=== PATIENT | male | born 1980 | race Two or more races ===

== ENCOUNTER 2024-07-25 04:49 | Emergency (ER) | payer MEDICAID, SELFPAY ==
[2024-07-25 05:05] VITALS: BP 137/84; PULSE 86; RESP 18; TEMP 38.1; O2SAT 96
--- NOTE | 2024-07-25 05:19 | XR_ITS ---
The examination: PA lateral chest 2 views Technique: Upright PA lateral chest 2 views Exam date and time: July 25, 2024 1725 hrs. Indications: Shortness of breath today. Findings: Mild prominence of ventricle No pneumonia or pulmonary edema 4 mm pulmonary nodule left upper lobe Impression: No pneumonia or pulmonary edema Recommend 3 month follow-up PA lateral chest to document stability of small pulmonary nodule left upper lobe
--- NOTE | 2024-07-25 05:19 | PD.EDRME ---
Rapid Medical Screening Exam RME Arrival date/time: 07/25/24 04:49 44 year old male present to Ed for c/o of flu like sx. I have greeted and performed a focused initial assessment of this patient. A comprehensive ED assessment and evaluation of the patient, analysis of all test results, and completion of the medical decision making process will be conducted by additional ED providers. Chief Complaint: Flu Like Symptoms Vital signs: Vital Signs Temperature 100.6 F H 07/25/24 05:05 Pulse Rate 86 07/25/24 05:05 Respiratory Rate 18 07/25/24 05:05 Blood Pressure 137/84 H 07/25/24 05:05 Pulse Oximetry (%) 96 07/25/24 05:05 Oxygen Delivery Method Room Air 07/25/24 05:05
[2024-07-25 06:00] VITALS: TEMP 38.1
[2024-07-25] MEDS: ACETAMINOPHEN 500 MG TABLET 1000 MG PO (06:00)
[2024-07-25] MEDS: BENZONATATE 100 MG CAPSULE 200 MG PO (06:00)
--- NOTE | 2024-07-25 06:25 | PD.EDURI ---
Upper Respiratory Inf. RME/HPI General Chief Complaint: Flu Like Symptoms Stated Complaint: SHORTNESS OF BREATH, COUGH, FEVER, HEADACHE Time Seen by Provider: 07/25/24 06:04 Source: patient Arrival date/time: 07/25/24 04:49 44-year-old male with no known medical history presents to the emergency room with a chief complaint of coughing, shortness of breath, intermittent fevers, headaches x 2 days Mode of arrival: ambulatory Limitations: no limitations RME / HPI RME / HPI Narrative: 07/25/24 04:49 44 year old male present to Ed for c/o of flu like sx. I have greeted and performed a focused initial assessment of this patient. A comprehensive ED assessment and evaluation of the patient, analysis of all test results, and completion of the medical decision making process will be conducted by additional ED providers. Related Data Previous Rx's ?Medication ?Instructions ?Recorded acetaminophen 325 mg capsule 650 mg (2 x 325 mg) PO QID PRN 07/25/24 fever or pain 7 days #30 caps Allergies Allergy/AdvReac Type Severity Reaction Status Date / Time No Known Allergies Allergy Verified 08/02/23 12:07 Review of Systems Review of Systems Systems Reviewed: All systems reviewed, normal except as documented Constitutional Constitutional: Reports system reviewed and no additional complaints, except as documented, Denies fatigue, Reports fever(s), Reports headache(s) and Reports weakness Eyes Eyes: Reports system reviewed and no additional complaints, except as documented, Denies blurry vision and Denies change in vision ENT Ears, Nose, Mouth, and Throat: Reports system reviewed and no additional complaints, except as documented, Denies otalgia, Reports headache(s), Denies nasal congestion, Denies throat swelling and Denies vertigo Cardiovascular Cardiovascular: Reports system reviewed and no additional complaints, except as documented, Denies chest pain, Reports dyspnea and Denies dyspnea on exertion Respiratory Respiratory: Reports system reviewed and no additional complaints, except as documented, Denies chest congestion, Reports cough, Reports dyspnea, Denies dyspnea on exertion and Denies wheezing Gastrointestinal Gastrointestinal: Reports system reviewed and no additional complaints, except as documented, Denies abdominal pain, Denies cramping, Denies nausea and Denies vomiting Genitourinary Genitourinary: Reports system reviewed and no additional complaints, except as documented, Denies dysuria and Denies hematuria Musculoskeletal Musculoskeletal: Reports system reviewed and no additional complaints, except as documented and Denies back pain Integumentary/Breasts Skin/Breast: Reports system reviewed and no additional complaints, except as documented and Denies wounds Neurologic Neurologic: Reports system reviewed and no additional complaints, except as documented, Denies confusion, Reports headache(s), Denies lack of coordination, Denies vertigo and Reports weakness Psychiatric Psychiatric: Reports system reviewed and no additional complaints, except as documented, Denies anxiety, Denies confusion, Denies depression, Denies paranoia, Denies suicidal ideation and Denies tactile hallucinations Endocrine Endocrine: Reports system reviewed and no additional complaints, except as documented and Denies fatigue Hematologic/Lymphatic Hematologic/Lymphatic: Reports system reviewed and no additional complaints, except as documented and Denies lymphadenopathy Allergic/Immunologic Allergic/Immunologic: Reports system reviewed and no additional complaints, except as documented, Denies throat swelling, Denies urticaria and Denies wheezing Past Medical History Social History SMOKING STATUS: Never smoker ED Exam General Limitations: Present no limitations General appearance: Present alert and in no apparent distress Head Head exam: Present atraumatic, normocephalic and normal inspection Eye Eye exam: Present normal appearance, PERRL and EOMI ENT ENT exam: Present normal exam, normal oropharynx and mucous membranes moist Neck Neck exam: Present normal inspection, full ROM and trachea midline Chest Chest inspection: Present normal inspection and symmetric chest wall rise Respiratory Respiratory exam: Present normal lung sounds bilaterally; Absent respiratory distress, wheezes, stridor, accessory muscle use or prolonged expiratory phase Cardiovascular Cardiovascular exam: Present regular rate, normal rhythm and normal heart sounds Abdominal Exam Abdominal exam: Present soft and normal bowel sounds Extremities Exam Extremities exam: Present normal inspection and full ROM Back Exam Back exam: Present normal inspection and full ROM Neurological Exam Neurological exam: Present alert, oriented X3 and CN II-XII intact Psychiatric Psychiatric exam: Present normal affect and normal mood Skin Skin exam: Present warm, dry, intact and normal color Course Quality Measures none Orders Category Date Time Status Bedside COVID-19 Antigen Test NOW Care 07/25/24 05:18 Completed Bedside Influenza A&B Antigen Test NOW Care 07/25/24 05:18 Completed XR chest 2V Stat Exams 07/25/24 05:19 Taken Strep A Rapid Stat Lab 07/25/24 05:39 Received Acetaminophen Tab [Tylenol ES Tab] Med 07/25/24 05:18 Discontinued 1,000 mg PO X1 ONE Benzonatate [Tessalon] Med 07/25/24 05:18 Discontinued 200 mg PO X1 ONE Vital Signs Vital signs: Vital Signs Temperature 100.6 F H 07/25/24 05:05 Pulse Rate 86 07/25/24 05:05 Respiratory Rate 18 07/25/24 05:05 Blood Pressure 137/84 H 07/25/24 05:05 Pulse Oximetry (%) 96 07/25/24 05:05 Oxygen Delivery Method Room Air 07/25/24 05:05 O2 saturation 96% on room air Upper Respiratory Infection MDM Narrative MDM Narrative:: 44-year-old male with no known medical history presents to the emergency room with a chief complaint of coughing, shortness of breath, intermittent fevers, headaches x 2 days Patient is hemodynamically stable. Patient was febrile and temperature dropped after antipyretics. The patient is not tachypneic he is not tachycardic and O2 saturation is 96% on room air Lung sounds are clear bilaterally. There is no evidence of wheezing or any abnormal breath sounds Patient tested positive for influenza A Patient was discharged and educated to follow-up with primary care provider in the next 24 to 48 hours and return to the emergency room for any evidence of worsening signs or symptoms Patient data External records reviewed:: [facility] previous records Clinical information provided by:: patient Social determinants that could affect healthcare access:: none Patient has the following chronic illnesses:: No chronic illness How is presenting disease/condition affected by chronic disease/condition?: no chronic disease Evaluation data The following diagnostics were reviewed and interpreted by me:: lab results and radiology exam(s) Lab and/or radiology exams considered but not ordered:: Labs and radiology exams considered and ordered Interpretation Summary: N/A Medications / Prescriptions Medications or Prescriptions considered but not ordered:: Medication given Medication administrations:: Medication Administration History Discontinued Medications Acetaminophen (Acetaminophen 500 Mg Tablet) 1,000 mg PO X1 ONE Stop: 07/25/24 05:19 Last Admin: 07/25/24 06:00 Dose: 1,000 mg Documented By: INES Benzonatate (Benzonatate 100 Mg Capsule) 200 mg PO X1 ONE; Protocol Stop: 07/25/24 05:19 Last Admin: 07/25/24 06:00 Dose: 200 mg Documented By: INES Medication given Consultations Consultation(s) initiated? (list below): No Diagnosis Upper Respiratory Differential Diagnosis: upper respiratory infection, viral infection, bronchitis and influenza Most likely diagnosis given after review of the tests above:: Influenza A Admission Indicated Admission indicated?: not indicated Admission Request Was there a request for admission?: No Disposition Plan Disposition Plan: Discharge Discharge Attestation Discharge Attestation: The patient and all family members were given an opportunity to ask questions and understood the discharge instructions. Discharge instructions specifically effects, indications for sooner follow up or return to the emergency department, and the expected course of current diagnosis. Patient condition: Stable Discharge Plan Plan Patient Disposition: HOME (Self Care) Disposition Comment: Stable Prescriptions/Referrals Prescriptions/Med Rec: New acetaminophen 325 mg capsule 650 mg PO QID PRN (Reason: fever or pain) 7 Days Qty: 30 0RF Referrals: Alberto Alfonso MD [Primary Care Provider] - In 1 week Problem List Clinical Impression: Influenza A Patient/Caregiver Discharge Instructions Education Materials: The Flu (Influenza), ED Influenza (Adult) Additional Instructions: Por favor, consulte con hernandez m?dico de cabecera en las pr?ximas 24 a 48 horas. Hernandez prueba de influenza sacha positivo. El tratamiento para esto es el control de los s?ntomas. Contin?e tomando Tylenol e ibuprofeno para controlar la fiebre. Aumente hernandez ingesta de l?quidos por v?a oral. Si hay evidencia de empeoramiento de los signos o s?ntomas, regrese a la lmain de emergencias de inmediato. Print Language: Romanian Stand Alone Forms: Isha Award Info., Work/School Release, Patient Portal Info Letter PA/APPLICATIONS SUPPORT ENGINEER Supervising Physician PA/APPLICATIONS SUPPORT ENGINEER Supervising Physician: Dr. Medley
[2024-07-25 06:40] VITALS: TEMP 37.7
[2024-07-25 07:11] LABS: Strep A Rapid Negative (Negative)
== END 2024-07-25 06:40 | disposition home or self-care (01) ==
PROVIDERS: Physician Assistant; Emergency Provider Emergency Medicine; PCP Family Medicine
DX: J10.1 Influenza due to other identified influenza virus with other respiratory manifestations (principal)
CPT/HCPCS: 71046; 87400; 87651; 87811; 99283; A9270

== ENCOUNTER → 2024-08-24 | Outpatient (CLI) | payer MEDICAID, SELFPAY ==
--- NOTE | 2024-08-24 14:18 | XR_ITS ---
Examination: Knee, right 3 views , 3 views Technique: Knee AP, lateral, oblique 3 views Date and time of exam: August 24, 2024 1420 hrs. Indications: Knee pain years Findings: Moderate to advanced tricompartment osteoarthritis, most severe medial patellofemoral joints No fractures Impression: Moderate to advanced tricompartment osteoarthritis
== END | disposition home or self-care (01) ==
LOC: CDIM 14:02
PROVIDERS: PCP Student in an Organized Health Care Education/Training Program; Referring Provider Student in an Organized Health Care Education/Training Program; Visit Provider Student in an Organized Health Care Education/Training Program
DX: M17.11 Unilateral primary osteoarthritis, right knee (principal)
CPT/HCPCS: 73562

== ENCOUNTER 2024-11-07 13:57 | Outpatient (AMB) | payer MEDICAID, SELFPAY ==
[2024-11-07 14:13] VITALS: BP 115/76; PULSE 57; RESP 17; TEMP 36.8; O2SAT 95
--- NOTE | 2024-11-07 14:13 | ORTHONT_ITS ---
Vital signs 11/07/24 14:13 Weight 86.778 kg Weight Measurement Method Standing Scale BP 115/76 Blood Pressure Source Automatic Cuff Blood Pressure Location Right Upper Arm Position Sitting Respiration 17 Pulse 57 L Pulse Source Monitor Temp 98.2 F Temp Source Temporal Artery Scan Pulse Oximetry (%) 95 Oxygen Delivery Method Room Air Med/Allergies Allergies & Medications Allergies No Known Allergies Allergy (Verified 11/07/24 14:14) Medication Reconciliation ibuprofen 800 mg tablet 800 mg PO Q6H 11/07/24 [History Confirmed 11/07/24] meloxicam 7.5 mg tablet 7.5 mg PO QDAY #45 tabs 11/07/24 [Rx] Exam Exam Patient is in no acute distress and is cooperative with the examination today. Breathing is nonlabored. In no respiratory distress. Bilateral extremities were evaluated and demonstrates sensation intact to light touch. Palpable pedal pulses are present. No significant edema is present. Bilateral hips were examined. The patient has no pain with log roll of the hips. Internal rotation to 30 degrees and external rotation to 30 degrees is painless. Negative FADIR. The left knee was examined. The left knee is in varus alignment. Range of motion from 0-115 degrees. Knee is stable to varus and valgus as well as AP translation with <5mm. Patient has a negative McMurrays. There is no pain with patellofemoral compression and no crepitus noted. The knee is tender to palpation medially. The right knee was also examined. The right knee is in varus alignment. Range of motion from 0-120 degrees. Knee is stable to varus and valgus as well as AP translation with <5mm. Patient has a negative McMurrays. There is no pain with patellofemoral compression and no crepitus noted. The knee is tender to palpation medially. Nonweightbearing x-rays of the right knee demonstrates complete joint space obl iteration and osteophytes Assessment and Plan Problem List (1) Arthritis of both knees: Status: Acute Plan: Patient is a pleasant 44-year-old male with severe bilateral knee arthritis worse on the right. I would like to get weightbearing x-rays. We discussed that he is on the left side for a knee replacement*recommend continued conservative treatment. I sent him a prescription for meloxicam and we will likely do cortisone injections at the next visit Office Procedures GNS Level of Care Nursing/Assessment Patient Status: Initial/New Patient Nursing Assessment/Reassesment: Medication Reconciliation, Update PMH in EMR and Vital Signs Coordination of Care: Complex Care and Chronic Disease 1-5, Education Complex Pt/Fam, Consent,records obtained, informed consent, 1 Ins Authorization, Lab and Imaging orders, Results/Orders obtained and Staff clarify orders Special Needs: Language special needs (GIBRALTARIAN ) New Patient Charge New Patient Point Assignment: 1124 New Patient Point Charge: EXECUTIVE CHEF Level 4 ([id number]) MA Intake Visit Data Collection New Patient or Established: Established Patient (seen at [facility] within 3 years) Reason for Visit:: RIGHT KNEE OSTEOARTHRITIS Seen by Clinical Staff ONLY (RN/MA): No Fire Services Plumber Required: Yes PCP or OBGYN visit in last 3 months: Yes Hx Now: No Do You Feel Safe at Home: Yes Authorities Contacted: N/A Questionairres Past Medical History Past Medical History Have you ever been diagnosed with any of the following: Subjective Visit Visit for: new patient and knee (RIGHT KNEE ) Immunization / Flu Flu Vaccine in the Last 12 Months: Yes Flu Vaccine Exclusion Criteria: Already Received History of Present Illness Chief complaint: r>l knee pain Patient is a 44yo male with right>l knee pain that has been ongoing for 15 years. He has not had any intrarticular knee injections. He has no weight bearing xrays. He has not been able to get physical therapy. Personal History Red flag PMH: none Pain Pain level (0-10): 10 Pain duration: 2 YEARS Pain location: anterior Pain quality: sharp, burning, electric and other (specify) (SWELLING) Pain timing: night and increases with activity Associated signs & symptoms: weakness Ambulatory data Ambulatory device: none Walking distance (minutes): 1 Treatments Number of previous injections: 0 Number of Physical Therapy sessions: 0 Improvement with NSAIDS: n/a Review of Systems Review of Systems: All systems negative unless otherwise noted in HPI.
--- NOTE | 2024-11-07 14:14 | XR_ITS ---
Examination: Bilateral knees 2 views Right lateral knee left lateral knee 2 views Bilateral axial knees single view TECHNIQUE: Bilateral AP knees standing single view, bilateral PA knees standing single view flexion Standing right lateral knee left lateral knee 2 views Bilateral axial knees single view total 5 views Date and time: November 07, 2024 1420 hours INDICATIONS: Bilateral knee pain beginning 3 years ago FINDINGS: Significant osteopenia Advanced narrowing medial joint space right and left knee Bilateral moderate to advanced osteoarthritis patellofemoral joints No fractures IMPRESSION: Advanced narrowing medial joint spaces right and left knee Bilateral moderate to advanced osteoarthritis patellofemoral joints
== END 2024-11-07 14:20 | disposition home or self-care (01) ==
LOC: HODSRG 13:57
PROVIDERS: PCP Student in an Organized Health Care Education/Training Program; Referring Provider Student in an Organized Health Care Education/Training Program; Supervising Provider Orthopaedic Surgery Adult Reconstructive Orthopaedic Surgery; Visit Provider Orthopaedic Surgery Adult Reconstructive Orthopaedic Surgery
DX: M17.0 Bilateral primary osteoarthritis of knee (principal)
CPT/HCPCS: 73564; 99204; G0463

== ENCOUNTER 2024-11-30 13:38 | Outpatient (AMB) | payer MEDICAID, SELFPAY ==
--- NOTE | 2024-11-30 13:57 | ORTHONT_ITS ---
Vital signs 11/30/24 14:21 Height 1.65 m Height Method Stated Weight 83.263 kg Weight Measurement Method Standing Scale BMI 30.6 BP 123/75 Blood Pressure Source Automatic Cuff Blood Pressure Location Left Upper Arm Position Sitting Respiration 16 Pulse 69 Pulse Source Monitor Temp 97.9 F Temp Source Temporal Artery Scan Pulse Oximetry (%) 96 Oxygen Delivery Method Room Air Med/Allergies Allergies & Medications Allergies No Known Allergies Allergy (Verified 11/30/24 14:22) Medication Reconciliation ibuprofen 800 mg tablet 800 mg PO Q6H 11/07/24 [History Confirmed 11/30/24] meloxicam 7.5 mg tablet 7.5 mg PO QDAY #45 tabs 11/07/24 [Rx Confirmed 11/30/24] Exam Exam Patient is in no acute distress and is cooperative with the examination today. Breathing is nonlabored. In no respiratory distress. Bilateral extremities were evaluated and demonstrates sensation intact to light touch. Palpable pedal pulses are present. No significant edema is present. Bilateral hips were examined. The patient has no pain with log roll of the hips. Internal rotation to 30 degrees and external rotation to 30 degrees is painless. Negative FADIR. The left knee was examined. The left knee is in varus alignment. Range of motion from 0-115 degrees. Knee is stable to varus and valgus as well as AP translation with <5mm. Patient has a negative McMurrays. There is no pain with patellofemoral compression and no crepitus noted. The knee is tender to palpation medially. The right knee was also examined. The right knee is in varus alignment. Range of motion from 0-120 degrees. Knee is stable to varus and valgus as well as AP translation with <5mm. Patient has a negative McMurrays. There is no pain with patellofemoral compression and no crepitus noted. The knee is tender to palpation medially. Weightbearing x-rays of the right knee demonstrates complete joint space obliteration and osteophyte. Left knee also demonstrates varus deformity and complete bony ration of the medial joint space Assessment and Plan Problem List (1) Arthritis of both knees: Status: Acute Plan: Patient is a pleasant 44-year-old male with severe bilateral knee arthritis worse on the right. We will plan for continued injections given his age today. We will continue with conservative treatment Recommend knee cortisone injections as patient would like to proceed with conservative treatment at this time. The risks and benefits of the procedure were reviewed with the patient and patient gave verbal consent to continue with the procedure. Procedure: performed by Dr. Jovel Using sterile technique the Bilateral knees were thoroughly prepped with alcohol, and approximately 1 cc of Kenalog 40 mg/mL and 4 cc of 1% lidocaine was injected into each knee without resistance into the medial tibial femoral joint space. The patient tolerated the procedure. Office Procedures GNS Level of Care Nursing/Assessment Patient Status: Established Patient Nursing Assessment/Reassesment: Medication Reconciliation, Update PMH in EMR and Vital Signs Coordination of Care: Complex Care and Chronic Disease 1-5, Education Complex Pt/Fam, Consent,records obtained, informed consent, Results/Orders obtained and Staff clarify orders Special Needs: Language special needs Established Patient Charge Established Patient Point Assignment: 95 Established Patient Point Charge: EP Level 3 (80-115) Surgical Proc/IM SQ injection Major Surgical Procedure: Yes (BILATERAL KNEE INJECTION) Medication Given Medication Given Medication Given: Yes Documented Dose Given: 8 Route: Infiitration Medication Given Medication Given Medication Given: Yes Documented Dose Given: 2 Route: Infiitration Office Meds Xylocaine 10 mg/mL (1 %) injection solution Performing Provider: Israel Jovel MD Performing Location: [facility] Administered by: Israel Jovel MD on 11/30/24 14:19 Dose Route Admin Location Dispensed Lot Number Expiration Date [facility] Animated Cartoons Painter 40 mL Infiltration 40 mL [id number] 02/14/28 76336-238-82 [facility] triamcinolone acetonide 40 mg/mL suspension for injection Performing Provider: Israel Jovel MD Performing Location: [facility] Administered by: Israel Jovel MD on 11/30/24 14:19 Dose Route Admin Location Dispensed Lot Number Expiration Date [facility] Animated [employer] Painter 80 mg intra-articular 2 mL [id number] 06/15/26 52566-183-96 AARON ANDRADE [place] Intake Visit Data Collection New Patient or Established: Established Patient (seen at [facility] within 3 years) Reason for Visit:: RIGHT KNEE OSTEOARTHRITIS Seen by Clinical Staff ONLY (RN/MA): No Applications Manager Required: Yes PCP or OBGYN visit in last 3 months: Yes Hx Now: No Do You Feel Safe at Home: Yes Authorities Contacted: N/A Questionairres Past Medical History Past Medical History Have you ever been diagnosed with any of the following: Subjective Visit Visit for: new patient and knee (RIGHT KNEE ) Immunization / Flu Flu Vaccine in the Last 12 Months: Yes Flu Vaccine Exclusion Criteria: Already Received History of Present Illness Chief complaint: r>l knee pain Patient is a 44yo male with right>l knee pain that has been ongoing for 15 years. He has not had any intrarticular knee injections. He is here for x-ray follow-up. He has bilateral knee arthritis of significant severity with complet e obliteration of the medial joint space. Personal History Red flag PMH: none Pain Pain level (0-10): 10 Pain duration: 2 YEARS Pain location: anterior Pain quality: sharp, burning, electric and other (specify) (SWELLING) Pain timing: night and increases with activity Associated signs & symptoms: weakness Ambulatory data Ambulatory device: none Walking distance (minutes): 1 Treatments Number of previous injections: 0 Number of Physical Therapy sessions: 0 Improvement with NSAIDS: n/a Review of Systems Review of Systems: All systems negative unless otherwise noted in HPI.
[2024-11-30 14:21] VITALS: BP 123/75; PULSE 69; RESP 16; TEMP 36.6; O2SAT 96; BMI 30.6
== END 2024-11-30 14:29 | disposition home or self-care (01) ==
PROVIDERS: PCP Student in an Organized Health Care Education/Training Program; Referring Provider Student in an Organized Health Care Education/Training Program; Supervising Provider Orthopaedic Surgery Adult Reconstructive Orthopaedic Surgery; Visit Provider Orthopaedic Surgery Adult Reconstructive Orthopaedic Surgery
DX: M17.0 Bilateral primary osteoarthritis of knee (principal); M25.561 Pain in right knee
CPT/HCPCS: 20610; 99213; J3301; J3490; G0463

== ENCOUNTER 2025-03-13 14:47 | Outpatient (AMB) | payer MEDICAID, SELFPAY ==
[2025-03-13 15:06] VITALS: BP 120/82; PULSE 83; RESP 18; TEMP 36.9; O2SAT 94; BMI 31.0
--- NOTE | 2025-03-13 15:06 | ORTHONT_ITS ---
Vital signs 03/13/25 15:06 Height 1.65 m Height Method Stated Weight 84.595 kg Weight Measurement Method Standing Scale BMI 31.0 BP 120/82 Blood Pressure Source Automatic Cuff Blood Pressure Location Left Upper Arm Position Sitting Respiration 18 Pulse 83 Pulse Source Monitor Temp 98.4 F Temp Source Temporal Artery Scan Pulse Oximetry (%) 94 L Oxygen Delivery Method Room Air Med/Allergies Allergies & Medications Allergies No Known Allergies Allergy (Verified 03/13/25 15:07) Medication Reconciliation ibuprofen 800 mg tablet 800 mg PO Q6H 11/07/24 [History Confirmed 03/13/25] meloxicam 7.5 mg tablet 7.5 mg PO QDAY #45 tabs 11/07/24 [Rx Confirmed 03/13/25] Exam Exam Patient is in no acute distress and is cooperative with the examination today. Breathing is nonlabored. In no respiratory distress. Bilateral extremities were evaluated and demonstrates sensation intact to light touch. Palpable pedal pulses are present. No significant edema is present. Bilateral hips were examined. The patient has no pain with log roll of the hips. Internal rotation to 30 degrees and external rotation to 30 degrees is painless. Negative FADIR. The left knee was examined. The left knee is in varus alignment. Range of motion from 0-115 degrees. Knee is stable to varus and valgus as well as AP translation with <5mm. Patient has a negative McMurrays. There is no pain with patellofemoral compression and no crepitus noted. The knee is tender to palpation medially. The right knee was also examined. The right knee is in varus alignment. Range of motion from 0-120 degrees. Knee is stable to varus and valgus as well as AP translation with <5mm. Patient has a negative McMurrays. There is no pain with patellofemoral compression and no crepitus noted. The knee is tender to palpation medially. Weightbearing x-rays of the right knee demonstrates complete joint space obliteration and osteophyte. Left knee also demonstrates varus deformity and complete bony ration of the medial joint space Assessment and Plan Problem List (1) Arthritis of both knees: Status: Acute Plan: Patient is a pleasant 44-year-old male with severe bilateral knee arthritis worse on the right. We will plan for continued injections given his age today. We will continue with conservative treatment Recommend knee cortisone injections as patient would like to proceed with conservative treatment at this time. The risks and benefits of the procedure were reviewed with the patient and patient gave verbal consent to continue with the procedure. Procedure: performed by Dr. Jovel Using sterile technique the Bilateral knees were thoroughly prepped with alcohol, and approximately 1 cc of Kenalog 40 mg/mL and 4 cc of 1% lidocaine was injected into each knee without resistance into the medial tibial femoral joint space. The patient tolerated the procedure. Office Procedures GNS Level of Care Nursing/Assessment Patient Status: Established Patient Nursing Assessment/Reassesment: Medication Reconciliation, Update PMH in EMR and Vital Signs Coordination of Care: Complex Care and Chronic Disease 1-5, Education Complex Pt/Fam, Consent,records obtained, informed consent, Results/Orders obtained and Staff clarify orders Special Needs: Language special needs Established Patient Charge Established Patient Point Assignment: 95 Established Patient Point Charge: EP Level 3 (80-115) Surgical Proc/IM SQ injection Minor Surgical Procedure: Yes (BILATERAL KNEE INJECTION) Medication Given Medication Given Medication Given: Yes Documented Dose Given: 2 Route: Infiitration Medication Given Medication Given Medication Given: Yes Documented Dose Given: 8 Route: Infiitration Office Meds methylprednisolone acetate 80 mg/mL suspension for injection Performing Provider: Israel Jovel MD Performing Location: [facility] Administered by: Israel Jovel MD on 03/13/25 15:17 Dose Route Admin Location Dispensed Lot Number Expiration Date Pack age [facility] Supervisor [employer] 160 mg intra-articular KNEE 2 mL [id number] 11/13/26 [address]-8 [id number] [employer] ropivacaine (PF) 2 mg/mL (0.2 %) injection solution Performing Provider: Israel Jovel MD Performing Location: [facility] Administered by: Israel Jovel MD on 03/13/25 15:17 Dose Route Admin Location Dispensed Lot Number Expiration Date Pack age [facility] Supervisor [employer] 40 mL Infiltration KNEE 40 mL [id number] 06/15/27 62605-010-36 [id number] [facility] Intake Visit Data Collection New Patient or Established: Established Patient (seen at [facility] within 3 years) Reason for Visit:: BILATERAL KNEE INJECTION Seen by Clinical Staff ONLY (RN/MA): No Metal Molder Required: Yes PCP or OBGYN visit in last 3 months: Yes Hx Now: No Do You Feel Safe at Home: Yes Authorities Contacted: N/A Questionairres Past Medical History Past Medical History Have you ever been diagnosed with any of the following: Subjective Visit Visit for: follow up visit, knee and injections Immunization / Flu Flu Vaccine in the Last 12 Months: Yes Flu Vaccine Exclusion Criteria: Already Received History of Present Illness Chief complaint: r>l knee pain Patient is a 44yo male with right>l knee pain that has been ongoing for 15 years. He has not had any intrarticular knee injections. He is here for x-ray follow-up. He has bilateral knee arthritis of significant severity with complete obliteration of the medial joint space. Personal History Red flag PMH: none Pain Pain level (0-10): 10 Pain duration: 2 YEARS Pain location: anterior Pain quality: sharp, burning, electric and other (specify) (SWELLING) Pain timing: night and increases with activity Associated signs & symptoms: weakness Ambulatory data Ambulatory device: none Walking distance (minutes): 1 Treatments Number of previous injections: 0 Number of Physical Therapy sessions: 0 Improvement with NSAIDS: n/a Review of Systems Review of Systems: All systems negative unless otherwise noted in HPI.
== END 2025-03-13 15:12 | disposition home or self-care (01) ==
LOC: HODSRG 14:47
PROVIDERS: PCP Student in an Organized Health Care Education/Training Program; Referring Provider Student in an Organized Health Care Education/Training Program; Supervising Provider Orthopaedic Surgery Adult Reconstructive Orthopaedic Surgery; Visit Provider Orthopaedic Surgery Adult Reconstructive Orthopaedic Surgery
DX: M25.562 Pain in left knee (principal); M25.561 Pain in right knee; M17.0 Bilateral primary osteoarthritis of knee
CPT/HCPCS: 20610; 99213; J1010; J2795; G0463